=== PATIENT | male | born 1945 | race Caucasian/White ===

== ENCOUNTER 2019-02-07 22:13 | Inpatient (IN) | payer MEDICARE ==
[2019-02-07] MEDS: CEFEPIME 1GM/50 ML (PMX) 50 ML IVPB (00:10)
[2019-02-07] MEDS: SOD CHLORIDE 0.9% 500 ML IV (22:39)
[2019-02-07 22:45] LABS: ABNORMAL IP MESSAGE 1; ADD MAN DIFF? NO; BASOPHILS % 0.1 % (0.0-2.0); HEMATOCRIT 24.6 % (42.0-52.0); LYMPHOCYTES # 0.3 10^3/ul (0.8-2.9); LYMPHOCYTES % 2.3 % (15.0-51.0); MEAN CORPUSCULAR HEMOGLOBIN 33.1 pg (29.0-33.0); MEAN CORPUSCULAR HGB CONC 32.5 g/dl (32.0-37.0); MEAN CORPUSCULAR VOLUME 101.7 fl (82.0-101.0); MEAN PLATELET VOLUME 11.7 fl (7.4-10.4); MONOCYTE # 0.4 10^3/ul (0.3-0.9); NEUTROPHIL # 11.5 10^3/ul (1.6-7.5); NEUTROPHILS % 93.1 % (39.0-77.0); POSITIVE DIFF @See below; RED BLOOD COUNT 2.42 10^6/ul (4.70-6.10); RED CELL DISTRIBUTION WIDTH 22.5 % (11.5-14.5)
[2019-02-07 22:45] LABS: WHITE BLOOD COUNT 12.3 10^3/ul (4.8-10.8)
[2019-02-07 22:53] LABS: PATH REVIEW? YES; PLATELET COUNT 15 10^3/UL (140-415)
[2019-02-07 23:05] LABS: ALANINE AMINOTRANSFERASE 307 IU/L (13-69); ALBUMIN 2.1 g/dl (3.3-4.9); ALBUMIN/GLOBULIN RATIO 1.05; ALKALINE PHOSPHATASE 406 IU/L (42-121); ANION GAP 9 (5-13); ASPARTATE AMINO TRANSFERASE 71 IU/L (15-46); BILIRUBIN,INDIRECT 0.5 mg/dl (0-1.1); BILIRUBIN,TOTAL 0.5 mg/dl (0.2-1.3); BLOOD UREA NITROGEN 38 mg/dl (7-20); CALCIUM 7.9 mg/dl (8.4-10.2); CARBON DIOXIDE 19 mmol/L (21-31); CHLORIDE 104 mmol/L (97-110); CREATININE 0.98 mg/dl (0.61-1.24); GLUCOSE 193 mg/dl (70-220); POTASSIUM 3.7 mmol/L (3.5-5.1); SODIUM 132 mmol/L (135-144); TOTAL PROTEIN 4.1 g/dl (6.1-8.1)
[2019-02-07 23:06] LABS: INR 0.96; PROTIME 12.9 Sec (11.9-14.9)
[2019-02-07 23:07] LABS: PARTIAL THROMBOPLASTIN TIME 26.8 Sec (23.0-35.0)
[2019-02-07 23:16] LABS: TROPONIN-I 0.048 ng/ml (0.000-0.120)
[2019-02-07] MEDS ORDERED: ONDANSETRON 4 MG INJ IV (23:30)
[2019-02-07] MEDS ORDERED: ACETAMINOPHEN 325 MG TAB PO (23:30)
[2019-02-08 00:28] LABS: ADD UMIC YES; UR ASCORBIC ACID 40 mg/dL (NEGATIVE); UR BACTERIA MANY /HPF (NONE SEEN); UR BILIRUBIN (Dip) NEGATIVE (NEGATIVE); UR BLOOD (Dip) NEGATIVE (NEGATIVE); UR CALCIUM OXALATE CRYSTAL FEW /HPF (NONE SEEN); UR CLARITY CLOUDY (CLEAR); UR COLOR YELLOW (YELLOW); UR GLUCOSE (Dip) NEGATIVE (NEGATIVE); UR KETONES (Dip) NEGATIVE (NEGATIVE); UR LEUKOCYTE ESTERASE (Dip) TRACE Leu/ul (NEGATIVE); UR MUCUS MODERATE /HPF (NONE SEEN); UR NITRITE (Dip) POSITIVE (NEGATIVE); UR RBC 4 /HPF (0-5); UR RENAL EPITHELIAL CELL FEW /HPF (NONE SEEN); UR SPECIFIC GRAVITY (Dip) 1.011 (1.003-1.030); UR TOTAL PROTEIN (Dip) NEGATIVE (NEGATIVE); UR UROBILINOGEN (Dip) NEGATIVE (NEGATIVE); UR WBC 34 /HPF (0-5)
[2019-02-08] MEDS: VANCOMYCIN 1 GM (PMX) 250 ML IVPB (01:02)
[2019-02-08] MEDS ORDERED: NACL 0.9% 3 ML SYG IV (05:00)
[2019-02-08] MEDS ORDERED: ALBUTEROL/IPRATROPIUM (NEB) 3 ML AMP HHN (05:00)
[2019-02-08] MEDS ORDERED: ONDANSETRON 4 MG INJ IV (05:00)
[2019-02-08] MEDS: PANTOPRAZOLE (EC) 40 MG TAB PO (06:02)
[2019-02-08 06:48] LABS: ADD MAN DIFF? NO
[2019-02-08 06:55] LABS: WHITE BLOOD COUNT 12.7 10^3/ul (4.8-10.8)
[2019-02-08 06:55] LABS: ABNORMAL IP MESSAGE 1; BASOPHILS % 0.1 % (0.0-2.0); HEMATOCRIT 23.5 % (42.0-52.0); HEMOGLOBIN 7.6 g/dl (14.0-18.0); LYMPHOCYTES # 0.2 10^3/ul (0.8-2.9); LYMPHOCYTES % 1.8 % (15.0-51.0); MEAN CORPUSCULAR HEMOGLOBIN 33.2 pg (29.0-33.0); MEAN CORPUSCULAR HGB CONC 32.3 g/dl (32.0-37.0); MEAN CORPUSCULAR VOLUME 102.6 fl (82.0-101.0); MEAN PLATELET VOLUME 12.8 fl (7.4-10.4); MONOCYTE # 0.7 10^3/ul (0.3-0.9); MONOCYTES % 5.7 % (0.0-11.0); NEUTROPHIL # 11.5 10^3/ul (1.6-7.5); NEUTROPHILS % 90.4 % (39.0-77.0); POSITIVE DIFF @See below; RED BLOOD COUNT 2.29 10^6/ul (4.70-6.10); RED CELL DISTRIBUTION WIDTH 22.5 % (11.5-14.5)
[2019-02-08 07:19] LABS: IRON 81 ug/dl (35-150); PLATELET COUNT 28 10^3/UL (140-415)
[2019-02-08 07:21] LABS: ALANINE AMINOTRANSFERASE 273 IU/L (13-69); ALBUMIN 1.9 g/dl (3.3-4.9); ALKALINE PHOSPHATASE 362 IU/L (42-121); ANION GAP 6 (5-13); ASPARTATE AMINO TRANSFERASE 69 IU/L (15-46); BILIRUBIN,INDIRECT 0.6 mg/dl (0-1.1); BILIRUBIN,TOTAL 0.6 mg/dl (0.2-1.3); BLOOD UREA NITROGEN 38 mg/dl (7-20); CALCIUM 7.6 mg/dl (8.4-10.2); CARBON DIOXIDE 23 mmol/L (21-31); CHLORIDE 105 mmol/L (97-110); CHOL/HDL RATIO 2.9 RATIO; CHOLESTEROL 111 mg/dl (100-200); CREATININE 0.93 mg/dl (0.61-1.24); GLUCOSE 128 mg/dl (70-220); HDL CHOLESTEROL 38 mg/dl (31-75); LDL CHOLESTEROL,CALCULATED 60 mg/dl; MAGNESIUM 1.8 mg/dl (1.7-2.5); POTASSIUM 3.6 mmol/L (3.5-5.1); SODIUM 134 mmol/L (135-144); TRIGLYCERIDES 65 mg/dl (0-149)
[2019-02-08 07:29] LABS: % IRON SATURATION 48 % SAT (22-52); TOTAL IRON BINDING CAPACITY 168 ug/dl (241-421)
[2019-02-08 07:50] LABS: THYROID STIMULATING HORMONE 0.675 MIU/L (0.465-4.680)
[2019-02-08 08:11] LABS: HEMOGLOBIN A1C 5.7 % (0-5.9)
[2019-02-08] MEDS: CEFTRIAXONE 1 GM/50 ML (PMX) 50 ML IVPB (09:33)
[2019-02-08] MEDS: CEFEPIME 1GM/50 ML (PMX) 50 ML IVPB ×3 (20:39→22:00)
[2019-02-08] MEDS ORDERED: CEFEPIME 1GM/50 ML (PMX) 50 ML IVPB (21:00)
[2019-02-09] MEDS: PANTOPRAZOLE (EC) 40 MG TAB PO (05:33)
[2019-02-09] MEDS: CEFEPIME 1GM/50 ML (PMX) 50 ML IVPB ×3 (05:33→21:40)
[2019-02-09 07:34] LABS: ADD MAN DIFF? NO
[2019-02-09 07:51] LABS: ABNORMAL IP MESSAGE 1; BASOPHILS % 0.1 % (0.0-2.0); HEMATOCRIT 26.8 % (42.0-52.0); HEMOGLOBIN 8.8 g/dl (14.0-18.0); LYMPHOCYTES # 0.8 10^3/ul (0.8-2.9); LYMPHOCYTES % 5.9 % (15.0-51.0); MEAN CORPUSCULAR HEMOGLOBIN 33.7 pg (29.0-33.0); MEAN CORPUSCULAR HGB CONC 32.8 g/dl (32.0-37.0); MEAN CORPUSCULAR VOLUME 102.7 fl (82.0-101.0); MONOCYTE # 0.8 10^3/ul (0.3-0.9); MONOCYTES % 5.6 % (0.0-11.0); NEUTROPHIL # 12.5 10^3/ul (1.6-7.5); NEUTROPHILS % 87.1 % (39.0-77.0); POSITIVE DIFF @See below; RED BLOOD COUNT 2.61 10^6/ul (4.70-6.10); RED CELL DISTRIBUTION WIDTH 22.7 % (11.5-14.5)
[2019-02-09 07:51] LABS: WHITE BLOOD COUNT 14.4 10^3/ul (4.8-10.8)
[2019-02-09 07:53] LABS: PLATELET COUNT 22 10^3/UL (140-415)
[2019-02-09 08:26] LABS: ANION GAP 8 (5-13); BLOOD UREA NITROGEN 35 mg/dl (7-20); CALCIUM 8.2 mg/dl (8.4-10.2); CARBON DIOXIDE 23 mmol/L (21-31); CHLORIDE 103 mmol/L (97-110); CREATININE 1.05 mg/dl (0.61-1.24); GLUCOSE 113 mg/dl (70-220); MAGNESIUM 1.7 mg/dl (1.7-2.5); PHOSPHORUS 2.3 mg/dl (2.5-4.9); POTASSIUM 3.5 mmol/L (3.5-5.1); SODIUM 134 mmol/L (135-144)
[2019-02-09] MEDS: LACTOBACILLUS RHAMNOSUS CAP PO (21:40)
[2019-02-10] MEDS: CEFEPIME 1GM/50 ML (PMX) 50 ML IVPB ×2 (03:37→05:18)
[2019-02-10] MEDS: PANTOPRAZOLE (EC) 40 MG TAB PO (05:38)
[2019-02-10 06:04] LABS: ADD MAN DIFF? NO
[2019-02-10 06:10] LABS: ABNORMAL IP MESSAGE 1; BASOPHILS % 0.1 % (0.0-2.0); EOSINOPHILS % 0.1 % (0.0-7.0); HEMATOCRIT 23.1 % (42.0-52.0); HEMOGLOBIN 7.5 g/dl (14.0-18.0); LYMPHOCYTES # 0.4 10^3/ul (0.8-2.9); MEAN CORPUSCULAR HEMOGLOBIN 33.3 pg (29.0-33.0); MEAN CORPUSCULAR HGB CONC 32.5 g/dl (32.0-37.0); MEAN CORPUSCULAR VOLUME 102.7 fl (82.0-101.0); MONOCYTE # 0.5 10^3/ul (0.3-0.9); MONOCYTES % 4.7 % (0.0-11.0); NEUTROPHIL # 9.2 10^3/ul (1.6-7.5); POSITIVE DIFF @See below; RED BLOOD COUNT 2.25 10^6/ul (4.70-6.10); RED CELL DISTRIBUTION WIDTH 22.5 % (11.5-14.5)
[2019-02-10 06:10] LABS: WHITE BLOOD COUNT 10.2 10^3/ul (4.8-10.8)
[2019-02-10 06:17] LABS: PLATELET COUNT 11 10^3/UL (140-415)
[2019-02-10 06:29] LABS: PHOSPHORUS 2.4 mg/dl (2.5-4.9)
[2019-02-10 06:45] LABS: ANION GAP 7 (5-13); BLOOD UREA NITROGEN 34 mg/dl (7-20); CALCIUM 7.7 mg/dl (8.4-10.2); CARBON DIOXIDE 24 mmol/L (21-31); CHLORIDE 102 mmol/L (97-110); CREATININE 1.12 mg/dl (0.61-1.24); GLUCOSE 90 mg/dl (70-220); POTASSIUM 3.3 mmol/L (3.5-5.1); SODIUM 133 mmol/L (135-144)
[2019-02-10] MEDS: LACTOBACILLUS RHAMNOSUS CAP PO ×2 (09:18→20:28)
[2019-02-10 12:06] LABS: WHITE BLOOD COUNT 10.6 10^3/ul (4.8-10.8)
[2019-02-10 12:06] LABS: ABNORMAL IP MESSAGE 1; HEMATOCRIT 23.9 % (42.0-52.0); HEMOGLOBIN 7.8 g/dl (14.0-18.0); MEAN CORPUSCULAR HEMOGLOBIN 33.9 pg (29.0-33.0); MEAN CORPUSCULAR HGB CONC 32.6 g/dl (32.0-37.0); MEAN CORPUSCULAR VOLUME 103.9 fl (82.0-101.0); POSITIVE DIFF @See below; RED CELL DISTRIBUTION WIDTH 22.7 % (11.5-14.5)
[2019-02-10 12:21] LABS: ADD MAN DIFF? YES; PLATELET COUNT 16 10^3/UL (140-415)
[2019-02-10] MEDS: MEROPENEM 1 GM/50ML(PMX) 50 ML IVPB ×2 (12:23→20:28)
[2019-02-10 13:12] LABS: ANISOCYTOSIS 1+ (0-0); BAND NEUTROPHILS #M 0.8 10^3/ul (0.0-0.6); BAND NEUTROPHILS % (M) 8 % (0-4); LYMPHOCYTES % (M) 29 % (15-51); MONOCYTE #M 0.3 10^3/ul (0.3-0.9); MONOCYTES % (M) 3 % (0-11); PLATELET ESTIMATE SIG DECREASED; POLYCHROMASIA 3+ (0-0); REACTIVE LYMPHOCYTES #M 0.2 10^3/ul (0.0-0.0); REACTIVE LYMPHOCYTES% (M) 2 % (0-0); SEG NEUT #M 6.2 10^3/ul (1.6-7.5); SEGMENTED NEUTROPHILS (M) % 58 % (39-77); SMUDGE%M 1 % (0-0)
[2019-02-10] MEDS: NEUTRA-PHOS 250 MG PACKET PO ×2 (14:45→20:28)
[2019-02-10 15:00] LABS: TYPE AND SCREEN 1 1
[2019-02-10 20:01] LABS: ANA SCREEN POSITIVE (NEGATIVE)
[2019-02-11] MEDS: PANTOPRAZOLE (EC) 40 MG TAB PO (05:55)
[2019-02-11 06:46] LABS: ADD MAN DIFF? NO
[2019-02-11 06:57] LABS: ABNORMAL IP MESSAGE 1; EOSINOPHILS % 0.2 % (0.0-7.0); HEMATOCRIT 21.6 % (42.0-52.0); LYMPHOCYTES # 0.3 10^3/ul (0.8-2.9); LYMPHOCYTES % 3.4 % (15.0-51.0); MEAN CORPUSCULAR HEMOGLOBIN 33.2 pg (29.0-33.0); MEAN CORPUSCULAR HGB CONC 32.4 g/dl (32.0-37.0); MEAN CORPUSCULAR VOLUME 102.4 fl (82.0-101.0); MEAN PLATELET VOLUME 11.6 fl (7.4-10.4); MONOCYTE # 0.5 10^3/ul (0.3-0.9); NEUTROPHIL # 7.8 10^3/ul (1.6-7.5); PLATELET COUNT 59 10^3/UL (140-415); POSITIVE DIFF @See below; RED BLOOD COUNT 2.11 10^6/ul (4.70-6.10); RED CELL DISTRIBUTION WIDTH 22.6 % (11.5-14.5)
[2019-02-11 06:57] LABS: WHITE BLOOD COUNT 8.8 10^3/ul (4.8-10.8)
[2019-02-11] MEDS: MEROPENEM 1 GM/50ML(PMX) 50 ML IVPB ×2 (09:06→20:24)
[2019-02-11] MEDS: NEUTRA-PHOS 250 MG PACKET PO ×2 (09:06→20:24)
[2019-02-11] MEDS: LACTOBACILLUS RHAMNOSUS CAP PO ×2 (09:06→20:24)
[2019-02-11] MEDS: POTASSIUM CHLORIDE 20 MEQ POWDER FOR ORAL SOLN PO (18:35)
[2019-02-11 20:12] LABS: ANA PATTERN HOMOGENEOUS
[2019-02-11 23:28] LABS: HEPARIN INDUCED PLATELET AB NEGATIVE (NEGATIVE)
[2019-02-12] MEDS: PANTOPRAZOLE (EC) 40 MG TAB PO (05:40)
[2019-02-12] MEDS: MEROPENEM 1 GM/50ML(PMX) 50 ML IVPB ×2 (08:18→20:17)
[2019-02-12] MEDS: NEUTRA-PHOS 250 MG PACKET PO ×2 (08:18→20:18)
[2019-02-12] MEDS: LACTOBACILLUS RHAMNOSUS CAP PO ×2 (08:21→20:18)
[2019-02-12] MEDS: POTASSIUM CHLORIDE 20 MEQ POWDER FOR ORAL SOLN PO (09:56)
[2019-02-12] MEDS: ACETAMINOPHEN 325 MG TAB PO (11:25)
[2019-02-12 16:12] LABS: ABNORMAL IP MESSAGE 1; MEAN CORPUSCULAR HEMOGLOBIN 34.3 pg (29.0-33.0); MEAN CORPUSCULAR HGB CONC 32.4 g/dl (32.0-37.0); MEAN CORPUSCULAR VOLUME 106.1 fl (82.0-101.0); MEAN PLATELET VOLUME 11.5 fl (7.4-10.4); POSITIVE DIFF @See below; RED BLOOD COUNT 1.98 10^6/ul (4.70-6.10); RED CELL DISTRIBUTION WIDTH 22.6 % (11.5-14.5)
[2019-02-12 16:28] LABS: ADD MAN DIFF? YES; HEMOGLOBIN 6.8 g/dl (14.0-18.0); PLATELET COUNT 24 10^3/UL (140-415)
[2019-02-12 16:56] LABS: ANISOCYTOSIS 1+ (0-0); BAND NEUTROPHILS #M 0.5 10^3/ul (0.0-0.6); BAND NEUTROPHILS % (M) 8 % (0-4); LYMPHOCYTES #M 0.1 10^3/ul (0.8-2.9); LYMPHOCYTES % (M) 2 % (15-51); MICROCYTOSIS 1+ (0-0); MONOCYTE #M 0.1 10^3/ul (0.3-0.9); MONOCYTES % (M) 2 % (0-11); PLATELET ESTIMATE SIG DECREASED; POIKILOCYTOSIS 1+ (0-0); POLYCHROMASIA 1+ (0-0); SEG NEUT #M 6.2 10^3/ul (1.6-7.5); SEGMENTED NEUTROPHILS (M) % 88 % (39-77); TEAR DROP CELLS 1+ (0-0)
[2019-02-12 20:33] LABS: PLATELET ANTIBODY - IGA NEGATIVE (NEGATIVE); PLATELET ANTIBODY - IGG NEGATIVE (NEGATIVE); PLATELET ANTIBODY - IGM NEGATIVE (NEGATIVE)
[2019-02-12 21:22] LABS: IMMEDIATE SPIN CROSSMATCH 1 1
[2019-02-12] MEDS: SOD CHLORIDE 0.9% 250 ML IV* (21:30)
[2019-02-12] MEDS: hydrALAzine 20 MG INJ IV (22:48)
[2019-02-13] MEDS: PANTOPRAZOLE (EC) 40 MG TAB PO (05:33)
[2019-02-13 07:12] LABS: WHITE BLOOD COUNT 8.5 10^3/ul (4.8-10.8)
[2019-02-13 07:12] LABS: ABNORMAL IP MESSAGE 1; HEMATOCRIT 27.7 % (42.0-52.0); HEMOGLOBIN 8.9 g/dl (14.0-18.0); MEAN CORPUSCULAR HEMOGLOBIN 32.8 pg (29.0-33.0); MEAN CORPUSCULAR HGB CONC 32.1 g/dl (32.0-37.0); MEAN CORPUSCULAR VOLUME 102.2 fl (82.0-101.0); POSITIVE DIFF @See below; RED BLOOD COUNT 2.71 10^6/ul (4.70-6.10); RED CELL DISTRIBUTION WIDTH 23.2 % (11.5-14.5)
[2019-02-13 07:21] LABS: ADD MAN DIFF? YES; PLATELET COUNT 26 10^3/UL (140-415)
[2019-02-13 07:34] LABS: PHOSPHORUS 3.1 mg/dl (2.5-4.9)
[2019-02-13 07:34] LABS: MAGNESIUM 1.4 mg/dl (1.7-2.5)
[2019-02-13 07:37] LABS: ALANINE AMINOTRANSFERASE 89 IU/L (13-69); ALBUMIN/GLOBULIN RATIO 0.95; ALKALINE PHOSPHATASE 536 IU/L (42-121); ANION GAP 2 (5-13); ASPARTATE AMINO TRANSFERASE 35 IU/L (15-46); BLOOD UREA NITROGEN 24 mg/dl (7-20); CALCIUM 7.9 mg/dl (8.4-10.2); CARBON DIOXIDE 31 mmol/L (21-31); CHLORIDE 102 mmol/L (97-110); CREATININE 0.97 mg/dl (0.61-1.24); GLUCOSE 104 mg/dl (70-220); POTASSIUM 4.4 mmol/L (3.5-5.1); SODIUM 135 mmol/L (135-144); TOTAL PROTEIN 4.1 g/dl (6.1-8.1)
[2019-02-13 08:21] LABS: ANISOCYTOSIS 1+ (0-0); BAND NEUTROPHILS #M 1.9 10^3/ul (0.0-0.6); BAND NEUTROPHILS % (M) 23 % (0-4); BASOPHILS % (M) 1 % (0-2); BURR CELLS 1+ (0-0); EOSINOPHILS % (M) 2 % (0-7); GIANT THROMBO% (M) 1 % (0-0); LYMPHOCYTES #M 0.3 10^3/ul (0.8-2.9); LYMPHOCYTES % (M) 4 % (15-51); MONOCYTE #M 0.1 10^3/ul (0.3-0.9); MONOCYTES % (M) 2 % (0-11); MYELOCYTES % (M) 1 % (0-0); PLATELET ESTIMATE SIG DECREASED; POIKILOCYTOSIS 1+ (0-0); POLYCHROMASIA 2+ (0-0); REACTIVE LYMPHOCYTES% (M) 1 % (0-0); SEG NEUT #M 5.9 10^3/ul (1.6-7.5); SEGMENTED NEUTROPHILS (M) % 68 % (39-77); SMUDGE%M 21 % (0-0)
[2019-02-13] MEDS: NEUTRA-PHOS 250 MG PACKET PO (08:35)
[2019-02-13] MEDS: LACTOBACILLUS RHAMNOSUS CAP PO (08:35)
[2019-02-13] MEDS: MEROPENEM 1 GM/50ML(PMX) 50 ML IVPB (08:35)
[2019-02-13] MEDS: POTASSIUM CHLORIDE 20 MEQ POWDER FOR ORAL SOLN PO (08:36)
[2019-02-13] MEDS: MAGNESIUM OXIDE 400 MG TAB PO (15:22)
[2019-02-16] MEDS ORDERED: DOCUSATE SODIUM 100 MG CAP PO (09:00)
== END 2019-02-13 21:40 | DRG 872 ==
LOC: TEL 02-08 03:53 → E/R 22:13 → TEL 23:35
PROC: 30253R1 (ICD-10-PCS; principal; 2019-02-08)
PROC: 30253N1 (ICD-10-PCS; 2019-02-12)
DX: A41.51 Sepsis due to Escherichia coli [E. coli] (principal); C78.7 Secondary malignant neoplasm of liver and intrahepatic bile duct; C78.00 Secondary malignant neoplasm of unspecified lung; D61.818 Other pancytopenia; N30.00 Acute cystitis without hematuria; C67.9 Malignant neoplasm of bladder, unspecified; I10 Essential (primary) hypertension; I48.91 Unspecified atrial fibrillation; I25.10 Atherosclerotic heart disease of native coronary artery without angina pectoris; I25.2 Old myocardial infarction; N41.9 Inflammatory disease of prostate, unspecified; R62.7 Adult failure to thrive; Z68.21 Body mass index [BMI] 21.0-21.9, adult; Z93.6 Other artificial openings of urinary tract status; Z95.5 Presence of coronary angioplasty implant and graft; Z85.46 Personal history of malignant neoplasm of prostate; Z92.21 Personal history of antineoplastic chemotherapy; Z87.891 Personal history of nicotine dependence
CPT/HCPCS: 36430; 71045; 76700; 80048; 80053; 80061; 81001; 82728; 83036; 83540; 83735; 84100; 84443; 84484; 85025; 85610; 85730; 86022; 86038; 86644; 86850; 86900; 86901; 86920; 86945; 87040-91; 87086; 93005; 96374; 97162; 99285-25